=== PATIENT | female | born 1940 | race Caucasian/White ===

== ENCOUNTER → 2024-08-02 | Outpatient (CLI) | payer OTHER ==
--- NOTE | 2024-08-02 16:58 | HMCIMG ---
FOOT COMP 3+VWS RT HISTORY: Right foot pain COMPARISON: None TECHNIQUE: 3 images of the right foot were obtained. FINDINGS: There is no acute displaced fracture or dislocation. There is a calcaneal spur. Surgical anna marie are seen in the medial aspect of the right ankle. Degenerative changes are seen. IMPRESSION: 1. Findings as described above.
== END | disposition home or self-care (01) ==
LOC: RAH 15:48
PROVIDERS: ATTEND Family Medicine
DX: M19.071 Primary osteoarthritis, right ankle and foot (principal); M77.31 Calcaneal spur, right foot; M79.671 Pain in right foot
CPT/HCPCS: 73630